=== PATIENT | female | born 1965 | race Caucasian/White ===

== ENCOUNTER 2019-11-11 09:06 | Inpatient (IN) | payer OTHER ==
[~2019-11-11] VITALS: Ht 162.6 cm; Wt 67.0 kg
[2019-11-11] VITALS (13 sets, daily range): BP systolic 110–133; BP diastolic 75–95
[2019-11-11] MEDS ORDERED: VALTREX 500 MG500 M1 PO (09:25)
[2019-11-11] MEDS ORDERED: ONDANSETRON ODT4 MG PO (09:25)
[2019-11-11] MEDS ORDERED: BUSPIRONE HCL10 MG PO (09:26)
[2019-11-11] MEDS ORDERED: PREDNISONE 5 MG5 M1 PO (09:27)
[2019-11-11 09:31] LABS: HEMATOCRIT 54.9 % (37.0-47.0); HEMOGLOBIN 19.4 gm/dL (12.0-15.0); MCH 39.7 pg (26.0-34.0); MCHC 35.2 g/dL (28.0-37.0); MCV 112.6 fL (80.0-100.0); MPV 9.6 fl. (7.2-11.1); NUCLEATED RBCS 0 /100WBC; PLATELET COUNT* 434 thou/uL (150-400); RBC 4.88 mil/uL (4.20-5.00); RDW-CV 17.4 % (10.5-14.5); WBC 21.7 thou/uL (4.0-11.0)
[2019-11-11 09:32] LABS: URINE BLOOD NEGATIVE (Negative); URINE CLARITY CLEAR; URINE COLOR YELLOW; URINE GLUCOSE-RANDOM NEGATIVE (Negative); URINE KETONES 2+ (Negative); URINE LEUKOCYTES-REFLEX TRACE (Negative); URINE NITRITE-REFLEX NEGATIVE (Negative); URINE PROTEIN 1+ (Negative); URINE SPECIFIC GRAVITY 1.025 (1.005-1.030)
[2019-11-11 09:34] LABS: URINE BILIRUBIN 2+ (Negative)
[2019-11-11 09:35] LABS: ICTOTEST (BILI CONFIRMATORY) Positive (Negative)
[2019-11-11 09:38] LABS: INR 1.1; PROTIME 11.6 Seconds (9.20-11.50)
[2019-11-11 09:40] LABS: BE -3.7 mmol/L (-2 to +3); PCO2 24.7 mmHg (35.0-45.0); PO2 105.1 mmHg (75.0-100.0); pH 7.473 (7.340-7.450)
[2019-11-11 09:44] LABS: SQUAMOUS 0-3 Few /LPF (0-3); URINE RBC 0-2 Rare /HPF (0-2); URINE WBC-REFLEX 6-15 Few /HPF (0-5)
[2019-11-11 09:45] LABS: AMORPHOUS URATES Few /LPF (None Seen); CASTS None Seen /LPF (None Seen); MUCUS 0-3 Light strn/LPF (None Seen)
[2019-11-11 09:55] LABS: AMP/METHAMP Negative (Negative); BARBITURATES Negative (Negative); BENZODIAZEPINES Negative (Negative); COCAINE Negative (Negative); METHADONE Negative (Negative); OPIATES Negative (Negative); PCP Negative (Negative); THC POSITIVE (Negative)
[2019-11-11 10:00] LABS: ABSOLUTE LYMPHOCYTES 2.4 thou/uL (0.8-5.3); ABSOLUTE MONOCYTES 1.5 thou/uL (0.0-1.2); ABSOLUTE NEUTROPHILS 17.8 thou/uL (1.6-8.1); ANISOCYTOSIS 1+; PLATELET ESTIMATE INCREASED; POIKILOCYTOSIS 1+
[2019-11-11 10:17] LABS: CALCIUM 9.1 mg/dL (8.5-10.1); CREATININE 1.5 mg/dL (0.6-1.3); POTASSIUM 3.1 mmol/L (3.5-5.1)
[2019-11-11 10:21] LABS: ALBUMIN 2.8 g/dL (3.4-5.0); MAGNESIUM 2.6 mg/dL (1.8-2.4); TOTAL BILIRUBIN 2.1 mg/dL (<0.1-1.0); TOTAL PROTEIN 7.4 g/dL (6.4-8.2)
--- NOTE | 2019-11-11 14:48 | EKG ---
[place] [address] ELECTROCARDIOGRAM REPORT Name: TYREL OH Room: [address] IN .R.#: [id number] Admission: 11/11/19 Attend Phys: Lobo Mcclure, Discharge: Date of : 63 Date of Service: 11/11/19 0913 Report #: [id number] THIS REPORT FOR: //name// [facility] ED Test Date: 2019-11-11 Test Time: 09:13:12 Pat Name: TYREL OH Department: Room: [facility] Gender: F Salon Stylist: MS : 1965 Requested By: Sylvia Gutierrez Order Number: [id number] MD: Joseph Snider Measurements Intervals [place] Rate: 134 P: 49 MT: 114 QRS: 38 QRSD: 76 T: 239 QT: 295 QTc: 441 Interpretive Statements Sinus tachycardia Abnormal R-wave progression, early transition Borderline repolarization abnormality Baseline wander in lead(s) V6 No previous ECG available for comparison Electronically Signed On 11-11-2019 14:46:10 CDT by Joseph Snider [email or web address] <ELECTRONICALLY SIGNED> By: Joseph Snider MD, [facility] 11/11/19 1446 2 Joseph Snider MD, [facility] /EPI
[2019-11-12] VITALS (11 sets, daily range): BP systolic 108–139; BP diastolic 67–114
[2019-11-12 07:26] LABS: ABSOLUTE LYMPHOCYTES 1.7 thou/uL (0.8-5.3); ABSOLUTE MONOCYTES 1.2 thou/uL (0.0-1.2); ABSOLUTE NEUTROPHILS 18.9 thou/uL (1.6-8.1); BASOPHILS 0.1 %; EOSINOPHILS 0.1 %; HEMATOCRIT 43.4 % (37.0-47.0); LYMPHOCYTES 7.8 %; MCH 39.7 pg (26.0-34.0); MCHC 34.5 g/dL (28.0-37.0); MONOCYTES 5.3 %; MPV 9.1 fl. (7.2-11.1); NUCLEATED RBCS 0 /100WBC; POLYS 86.7 %; RBC 3.78 mil/uL (4.20-5.00); RDW-CV 17.4 % (10.5-14.5); WBC 21.9 thou/uL (4.0-11.0)
[2019-11-12 07:27] LABS: PLATELET COUNT* 309 thou/uL (150-400)
[2019-11-12 07:33] LABS: CALCIUM 8.2 mg/dL (8.5-10.1); CREATININE 0.5 mg/dL (0.6-1.3)
[2019-11-12 07:34] LABS: POTASSIUM 2.7 mmol/L (3.5-5.1)
[2019-11-13 00:46] VITALS: BP 149/98
[2019-11-13 03:51] LABS: ABSOLUTE EOSINOPHILS 0.1 thou/uL (0.0-0.7); ABSOLUTE LYMPHOCYTES 2.3 thou/uL (0.8-5.3); ABSOLUTE MONOCYTES 1.1 thou/uL (0.0-1.2); ABSOLUTE NEUTROPHILS 10.6 thou/uL (1.6-8.1); BASOPHILS 0.1 %; EOSINOPHILS 0.5 %; HEMATOCRIT 39.7 % (37.0-47.0); HEMOGLOBIN 13.5 gm/dL (12.0-15.0); LYMPHOCYTES 16.3 %; MCH 39.3 pg (26.0-34.0); MCHC 33.9 g/dL (28.0-37.0); MCV 115.8 fL (80.0-100.0); MONOCYTES 7.5 %; NUCLEATED RBCS 0 /100WBC; POLYS 75.6 %; RBC 3.43 mil/uL (4.20-5.00); RDW-CV 16.8 % (10.5-14.5)
[2019-11-13 04:09] LABS: PLATELET COUNT* 222 thou/uL (150-400)
[2019-11-13 04:10] LABS: ALBUMIN 2.4 g/dL (3.4-5.0); CREATININE 0.4 mg/dL (0.6-1.3); POTASSIUM 3.6 mmol/L (3.5-5.1); TOTAL PROTEIN 5.2 g/dL (6.4-8.2)
[2019-11-13 04:30] VITALS: BP 144/89
[2019-11-13 08:00] VITALS: BP 153/101
[2019-11-13 11:31] VITALS: BP 95/71
[2019-11-13 14:59] LABS: CSF GLUCOSE 57 mg/dl (40-70); CSF PROTEIN 152.2 mg/dl (15-45)
[2019-11-13 15:21] LABS: CSF CLARITY CLEAR; CSF COLOR COLORLESS; CSF WBC 3 /mm3 (0-10); VOLUME 8 ml
[2019-11-13 15:22] LABS: CSF RBC 82 /mm3
[2019-11-13 16:11] VITALS: BP 131/87
[2019-11-13 20:00] VITALS: BP 139/83
[2019-11-14] VITALS (7 sets, daily range): BP systolic 113–146; BP diastolic 82–98
[2019-11-14 04:49] LABS: HEMATOCRIT 37.4 % (37.0-47.0); HEMOGLOBIN 12.9 gm/dL (12.0-15.0); MCH 39.4 pg (26.0-34.0); MCHC 34.6 g/dL (28.0-37.0); MCV 113.8 fL (80.0-100.0); MPV 9.9 fl. (7.2-11.1); NUCLEATED RBCS 0 /100WBC; PLATELET COUNT* 246 thou/uL (150-400); RBC 3.28 mil/uL (4.20-5.00); RDW-CV 17.2 % (10.5-14.5); WBC 12.9 thou/uL (4.0-11.0)
[2019-11-14 04:54] LABS: CALCIUM 8.1 mg/dL (8.5-10.1); CREATININE 0.4 mg/dL (0.6-1.3); POTASSIUM 3.1 mmol/L (3.5-5.1); TOTAL BILIRUBIN 1.2 mg/dL (<0.1-1.0); TOTAL PROTEIN 5.5 g/dL (6.4-8.2)
[2019-11-14 05:23] LABS: ABSOLUTE LYMPHOCYTES 2.2 thou/uL (0.8-5.3); ABSOLUTE MONOCYTES 0.8 thou/uL (0.0-1.2); ABSOLUTE NEUTROPHILS 9.9 thou/uL (1.6-8.1); ANISOCYTOSIS 1+; MACROCYTES 1+; PLATELET ESTIMATE ADEQUATE
[2019-11-14 08:05] LABS: ESR (SEDRATE) 40 mm/hr (0-30)
[2019-11-15] VITALS (7 sets, daily range): BP systolic 135–159; BP diastolic 82–110
[2019-11-15 02:09] LABS: HEPATITIS B SURFACE AG Negative (Negative)
[2019-11-15 05:13] LABS: HEMATOCRIT 41.1 % (37.0-47.0); HEMOGLOBIN 14.1 gm/dL (12.0-15.0); MCH 39.3 pg (26.0-34.0); MCHC 34.4 g/dL (28.0-37.0); MCV 114.2 fL (80.0-100.0); MPV 10.6 fl. (7.2-11.1); RBC 3.6 mil/uL (4.20-5.00); RDW-CV 17.1 % (10.5-14.5); WBC 8.5 thou/uL (4.0-11.0)
[2019-11-15 05:34] LABS: ALBUMIN 2.5 g/dL (3.4-5.0); CALCIUM 8.4 mg/dL (8.5-10.1); CREATININE 0.5 mg/dL (0.6-1.3); MAGNESIUM 1.5 mg/dL (1.8-2.4); POTASSIUM 3.8 mmol/L (3.5-5.1); TOTAL BILIRUBIN 1.2 mg/dL (<0.1-1.0); TOTAL PROTEIN 6.2 g/dL (6.4-8.2)
--- NOTE | 2019-11-15 06:16 | CON ---
[address] [address] CONSULTATION Name: TYREL OH Danial Room: [address] IN M.R.#: [id number] Admission: 11/11/19 Attend Phys: Lobo Mcclure MD Discharge: Date of : 63 Report #: [id number] THIS REPORT FOR: //name// cc: Abby Casiano NP, Elizabeth NP ~ THIS REPORT FOR: //name// CC: Lobo Casiano DATE OF SERVICE: 11/14/2019 INFECTIOUS DISEASE CONSULTATION ATTENDING PHYSICIAN: Lobo Mcclure MD REASON FOR EVALUATION: Abnormal spinal fluid analysis with marked elevation in protein, clinical picture of hallucinations and somnolence. HISTORY OF PRESENT ILLNESS: Chart reviewed, patient examined. Again, obtained from the chart. She presented to the emergency room per family. She had initial bilateral leg weakness and numbness, loss of taste, smell. Two weeks ago, she was tested for COVID-19, which was negative. Repeat due to lack of resolution at the doctor's office, was given medications including acyclovir as well as buspirone, Zofran. Since that time, her mental status has worsened, difficult to arouse. On day of admission, unable to walk. Initial evaluation showed a pO2 of 105 on 2 liters. Urinalysis showed 6-15 white cells, 10-30 bacteria. Drug screen showed marijuana. Initial CBC, white count was elevated 21.7, hemoglobin of 19.4 and 54.9, MCV of 112.6. Repeat CBC this morning, white count of 12.9, H and H 12.9 and 37.4, MCV elevated at 113.8. Prealbumin 11.6. Initial electrolytes; sodium 143, potassium 3.1, creatinine was 1.5. LFTs are elevated mildly, AST of 67, ALT of 95, total bilirubin of 2.1. CT of the pelvis, there is heterogeneous attenuation of liver with asymmetric fatty infiltration, distended gallbladder. No CT evidence of acute cholecystitis. Due to her lack of response, underwent lumbar puncture showed a clear and colorless white count was 3, red count was 82, glucose of 57, protein is 152.2. She was started on ceftriaxone 1 gram daily. ALLERGIES: None known. CURRENT MEDICATIONS: Thiamine, ceftriaxone, lorazepam, ondansetron. PAST MEDICAL HISTORY: Otherwise, history of anxiety. SOCIAL HISTORY: Nonsmoker, seemingly regular ethanol. No illicit drug use, although confirmed [place] [address] CONSULTATION Name: TYREL OH Danial Room: [address] IN [facility]#: [id number] Admission: 11/11/19 Attend Phys: Lobo Mcclure MD Discharge: Date of : 63 Report #: [id number] FAMILY HISTORY: Noncontributory. REVIEW OF SYSTEMS: Not obtainable. PHYSICAL EXAMINATION: GENERAL: She is quite encephalopathic. It is clear that she is not oriented questionably to person. Speech has been impaired. Appears somewhat chronically ill, undernourished. VITAL SIGNS: Temperature 96.8, pulse 92, respirations 19, blood pressure 114/82. HEENT: Normocephalic. NECK: Appears to be supple. I do not appreciate any meningismus. LUNGS: Diminished breath sounds. HEART: Regular. Borderline tachycardic. I do not appreciate any murmur. ABDOMEN: Soft. There is no apparent tenderness. There are no peritoneal signs. SKIN: I do not appreciate any rashes on skin exam. GENITOURINARY: Deferred. RECTAL: Deferred. LABORATORY DIAGNOSTIC DATA: From today, white count of 12.9, H and H 12.9 and 37.4, platelets of 246. Prealbumin 11.6. Electrolytes: Sodium 138, potassium 3.1, chloride 105, bicarbonate is 25, anion gap of 8, BUN and creatinine 5 and 0.4, glucose of 100. AST of 68, ALT of 84, albumin of 2.0, total protein 5.5. CSF analysis as noted above, protein elevated at 152.2, total white count of 3, rbc's of 82, markedly elevated ferritin at 1836. ASSESSMENT AND PLAN: Encephalopathy that is necessarily focal type of neurological dysfunction, certainly raises question. Really unable to give any kind of a history of travel, etc. She had some testing to the CSF including HSV 1, 2. empirically treat with acyclovir parenterally. She has some other issues that are quite explainable. She does have elevated liver function tests that could be a drug-induced hepatitis, so the possibility of adverse drug effects could explain a part of this. The elevated MCV in spite of the absence of anemia and markedly elevated ferritin suggest acute phase reactant. I will ask pathology to review the peripheral smear as well. I doubt this is a bacterial etiology. We will start doxycycline; however, the possibility of some unusual process. <ELECTRONICALLY SIGNED> By: Bentley Connell MD 11/15/19 0616 1208 [id number] Connell MD /nt
[2019-11-16] VITALS: BP 135/98
[2019-11-16 04:00] VITALS: BP 137/92
[2019-11-16 04:40] LABS: HEMATOCRIT 39.6 % (37.0-47.0); HEMOGLOBIN 13.9 gm/dL (12.0-15.0); MCH 39.3 pg (26.0-34.0); MCHC 35.2 g/dL (28.0-37.0); MCV 111.6 fL (80.0-100.0); MPV 9.5 fl. (7.2-11.1); RBC 3.55 mil/uL (4.20-5.00); RDW-CV 16.9 % (10.5-14.5)
[2019-11-16 05:00] LABS: WBC 26.9 thou/uL (4.0-11.0)
[2019-11-16 05:11] LABS: ALBUMIN 2.5 g/dL (3.4-5.0); CALCIUM 8.6 mg/dL (8.5-10.1); CREATININE 0.6 mg/dL (0.6-1.3); MAGNESIUM 1.5 mg/dL (1.8-2.4); POTASSIUM 3.3 mmol/L (3.5-5.1); TOTAL BILIRUBIN 0.9 mg/dL (<0.1-1.0)
[2019-11-16 08:00] VITALS: BP 129/100
[2019-11-16 11:22] VITALS: BP 118/87
[2019-11-16 14:08] LABS: HIV-1/HIV-2 ANTIBODY Non Reactive (Non Reactive)
[2019-11-16 16:30] VITALS: BP 140/96
[2019-11-16 19:50] VITALS: BP 135/78
[2019-11-17] VITALS: BP 120/89
[2019-11-17 04:00] VITALS: BP 127/91
[2019-11-17 07:22] LABS: HEMOGLOBIN 14.2 gm/dL (12.0-15.0); MCH 38.9 pg (26.0-34.0); MCHC 34.5 g/dL (28.0-37.0); MCV 112.6 fL (80.0-100.0); MPV 9.5 fl. (7.2-11.1); RBC 3.64 mil/uL (4.20-5.00); RDW-CV 17.7 % (10.5-14.5); WBC 26.7 thou/uL (4.0-11.0)
[2019-11-17 07:34] LABS: ALBUMIN 2.7 g/dL (3.4-5.0); CALCIUM 9.1 mg/dL (8.5-10.1); CREATININE 1.3 mg/dL (0.6-1.3); MAGNESIUM 2.1 mg/dL (1.8-2.4); POTASSIUM 3.8 mmol/L (3.5-5.1); TOTAL BILIRUBIN 0.8 mg/dL (<0.1-1.0); TOTAL PROTEIN 6.3 g/dL (6.4-8.2)
[2019-11-17 08:00] VITALS: BP 131/88
[2019-11-17 12:03] VITALS: BP 128/104
[2019-11-17 15:51] VITALS: BP 129/91
[2019-11-17 19:50] VITALS: BP 132/87
[2019-11-18 00:26] VITALS: BP 129/88
[2019-11-18 04:32] VITALS: BP 137/94
[2019-11-18 04:42] LABS: HEMATOCRIT 38.2 % (37.0-47.0); HEMOGLOBIN 13.1 gm/dL (12.0-15.0); MCHC 34.2 g/dL (28.0-37.0); MCV 114.1 fL (80.0-100.0); MPV 9.8 fl. (7.2-11.1); RBC 3.35 mil/uL (4.20-5.00); RDW-CV 17.3 % (10.5-14.5); WBC 19.1 thou/uL (4.0-11.0)
[2019-11-18 05:13] LABS: ALBUMIN 2.5 g/dL (3.4-5.0); CALCIUM 8.8 mg/dL (8.5-10.1); CREATININE 1.6 mg/dL (0.6-1.3); MAGNESIUM 1.9 mg/dL (1.8-2.4); POTASSIUM 3.4 mmol/L (3.5-5.1); TOTAL BILIRUBIN 0.9 mg/dL (<0.1-1.0); TOTAL PROTEIN 5.7 g/dL (6.4-8.2)
[2019-11-18 08:00] VITALS: BP 141/98
[2019-11-18 12:01] VITALS: BP 154/106
[2019-11-18 12:08] LABS: HSV 1 DNA Negative (Negative); HSV 2 DNA Negative (Negative)
[2019-11-18 12:22] LABS: URINE BILIRUBIN NEGATIVE (Negative); URINE BLOOD NEGATIVE (Negative); URINE CLARITY CLEAR; URINE COLOR YELLOW; URINE GLUCOSE-RANDOM NEGATIVE (Negative); URINE KETONES NEGATIVE (Negative); URINE LEUKOCYTES TRACE (Negative); URINE NITRITE NEGATIVE (Negative); URINE PROTEIN NEGATIVE (Negative); URINE SPECIFIC GRAVITY 1.015 (1.005-1.030); URINE UROBILINOGEN 0.2 E.U./dl (0.2-1.0)
[2019-11-18 12:29] LABS: BACTERIA 1-9 Few /HPF (None Seen); CASTS None Seen /LPF (None Seen); CRYSTALS None Seen /LPF (None Seen); MUCUS None Seen strn/LPF (None Seen); SQUAMOUS 0-3 Few /LPF (0-3); URINE RBC 0-2 Rare /HPF (0-2); URINE WBC 0-5 Rare /HPF (0-5)
[2019-11-18 14:11] LABS: GLOBULIN TOTAL 2.3 g/dL (2.2-3.9); M-SPIKE Not Observed g/dL (Not Observed)
[2019-11-18 15:39] VITALS: BP 166/109
[2019-11-18 19:55] VITALS: BP 142/91
[2019-11-19 00:22] VITALS: BP 129/81
[2019-11-19 04:27] VITALS: BP 109/57
[2019-11-19 05:25] LABS: MCH 39.4 pg (26.0-34.0); MCHC 34.2 g/dL (28.0-37.0); MCV 115.2 fL (80.0-100.0); MPV 9.5 fl. (7.2-11.1); RBC 3.04 mil/uL (4.20-5.00); RDW-CV 17.8 % (10.5-14.5); WBC 11.3 thou/uL (4.0-11.0)
[2019-11-19 05:43] LABS: ALBUMIN 2.2 g/dL (3.4-5.0); CALCIUM 8.4 mg/dL (8.5-10.1); CREATININE 1.4 mg/dL (0.6-1.3); POTASSIUM 4.1 mmol/L (3.5-5.1); TOTAL BILIRUBIN 0.7 mg/dL (<0.1-1.0); TOTAL PROTEIN 5.3 g/dL (6.4-8.2)
[2019-11-19 08:00] VITALS: BP 157/110
[2019-11-19 11:57] VITALS: BP 128/82
[2019-11-19 15:57] VITALS: BP 166/99
[2019-11-20] VITALS (15 sets, daily range): BP systolic 139–169; BP diastolic 92–115
[2019-11-20 04:30] LABS: HEMATOCRIT 36.3 % (37.0-47.0); HEMOGLOBIN 12.5 gm/dL (12.0-15.0); MCH 39.4 pg (26.0-34.0); MCHC 34.4 g/dL (28.0-37.0); MCV 114.6 fL (80.0-100.0); MPV 9.6 fl. (7.2-11.1); RBC 3.17 mil/uL (4.20-5.00); RDW-CV 17.3 % (10.5-14.5); WBC 13.5 thou/uL (4.0-11.0)
[2019-11-20 04:43] LABS: APTT 24.2 Seconds (25.0-31.3); INR 1.2; PROTIME 11.9 Seconds (9.20-11.50)
[2019-11-20 04:45] LABS: ALBUMIN 2.4 g/dL (3.4-5.0); CALCIUM 8.8 mg/dL (8.5-10.1); CREATININE 1.2 mg/dL (0.6-1.3); POTASSIUM 3.9 mmol/L (3.5-5.1); TOTAL PROTEIN 5.7 g/dL (6.4-8.2)
--- NOTE | 2019-11-20 11:19 | CON ---
[address] [address] CONSULTATION Name: ADRIANOTYREL P Room: [address] IN M.R.#: [id number] Admission: 11/11/19 Attend Phys: Lobo Mcclure MD Discharge: Date of : 63 Report #: [id number] THIS REPORT FOR: //name// cc: Abby Casiano NP, Elizabeth NP ~ THIS REPORT FOR: //name// CC: Lobo Casiano DATE OF SERVICE: 11/18/2019 REQUESTING PHYSICIAN: Dr. Schuster. REASON FOR CONSULTATION: Acute kidney injury. HISTORY OF PRESENT ILLNESS: The patient is a 54-year-old female who was admitted to the hospital on 11/11/2019 with a complaint of altered mental status. The patient apparently was doing fine, but then became altered and confused for several weeks prior to admission, is getting slowly worse. She was even tested for COVID-19 by the primary care physician because she could not smell or taste anything. She was negative. She was given a prednisone, valacyclovir, buspirone, Zofran, but unfortunately did not get any better and on the day of admission when she woke up, she could not walk. She was confused. On admission, her creatinine was 1.5, but it improved quickly to normal. Neurology and Infectious Disease services were consulted. She had a lumbar puncture done and diagnosis at this point is encephalopathy. Etiology is still unclear. The patient was started empirically on IV acyclovir and also on doxycycline. Her creatinine went from 0.6 on 11/16/2019 to 1.3 yesterday and 1.6 today. Her acyclovir was stopped. MEDICAL HISTORY: Unremarkable. SOCIAL HISTORY: No significant tobacco or alcohol abuse. MEDICATIONS: As I described earlier. REVIEW OF SYSTEMS: Unreliable due to her altered mental status. PHYSICAL EXAMINATION: GENERAL: She is awake, but does not engage in conversation. She is disoriented. VITAL SIGNS: Blood pressure 140/98, heart rate is 114, afebrile. HEENT: Pupils are round. Oral mucosa dry. NECK: [place] [address] CONSULTATION Name: TYREL OH Room: [address] IN [facility]#: [id number] Admission: 11/11/19 Attend Phys: Lobo Mcclure MD Discharge: Date of : 63 Report #: [id number] LUNGS: Clear. CARDIOVASCULAR: Regular rate. ABDOMEN: Soft. LOWER EXTREMITIES: No edema. LABORATORY DATA: Urinalysis from 11/11/2019 showed some presence of bacteria, 0-2 red blood cells, some squamous cells, 2+ bilirubin. Her serum sodium is 142, potassium 3.4, chloride 110, carbon dioxide 21, BUN 30, creatinine 1.6. ASSESSMENT: 1. Acute kidney injury, possible due to acyclovir induced damage. Acyclovir can form crystals that can precipitate and block the tubules. I cannot rule out acute interstitial nephritis as a reaction to some infection that she has. Again, I am still not sure what she has. 2. Altered mental status. Workup is in progress. We have described earlier. PLAN: 1. Agree with stopping acyclovir. 2. We will recheck her urine and see if we can detect crystals in the urine that would confirm diagnosis of acyclovir induced acute kidney injury. Also agree with giving her more fluid. Continue with NS at 150 mL per hour. Follow labs. Discussed with Dr. Schuster and with her nurse. <ELECTRONICALLY SIGNED> By: Saravanan Garber MD 11/20/19 1119 1129 2058Alexayesha Weinstein MD /PMT
--- NOTE | 2019-11-20 13:35 | CON ---
[address] [address] CONSULTATION Name: ADRIANOTYREL P Room: [address] IN M.R.#: [id number] Admission: 11/11/19 Attend Phys: Lobo Mcclure MD Discharge: Date of : 63 Report #: [id number] THIS REPORT FOR: //name// cc: Abby Casiano NP, Elizabeth NP ~ THIS REPORT FOR: //name// CC: Lobo Casiano NP DATE OF SERVICE: 11/19/2019 REFERRING PHYSICIAN: Lobo Mcclure MD REASON FOR CONSULTATION: Elevated LFTs. IMPRESSION: 1. Elevated LFTs, of uncertain etiology, mental status changes and neurologic changes, neurologic issues of uncertain significance. 2. Chronic alcohol abuse. 3. Macrocytic anemia secondary to chronic alcohol abuse as well. RECOMMENDATIONS: 1. I reviewed all the patient's records including her labs and CT scans of the abdomen and pelvis while she does have fatty liver, the pattern of her elevated liver function tests do not fit necessarily. The pattern of a patient with alcoholic liver disease. 2. For this reason, we will check some serologic studies to evaluate her elevated LFTs including ceruloplasmin level, total copper level and a 24-hour urine for copper as well as autoimmune studies and the like. 3. We will hold off on an ultrasound-guided liver biopsy at this time. 4. Continue with all supportive care including folic acid, thiamine, etc. We will wait for the results of these studies and make further recommendations thereafter. HISTORY OF PRESENT ILLNESS: The patient is a 54-year-old white female who has been in the hospital since 11/10 with a multitude of issues and is currently being evaluated for issues related to mental status changes and neurologic issues. We were asked to see her because of elevated liver function tests. Most of the history is obtained from the patient's chart, which indicates the patient has longstanding history of chronic alcohol abuse. It is unclear how much she drinks and no one has been able to quantify this. The patient is not able to answer questions reliably at this point in time. We were asked to see her because of elevated liver function tests. She has [place] [address] CONSULTATION Name: TYREL OH Room: [address] IN .R.#: [id number] Admission: 11/11/19 Attend Phys: Lobo Mcclure MD Discharge: Date of : 63 Report #: [id number] any problems related to her upper or lower GI tract, but then again we cannot get much of a history. She has not had any previous hospital stays here at [facility], so we do not have any records regarding the same. She presented to the ER at the request of the family because of mental status changes and that was having issues with weakness, could not smell or eat and was not doing well. She is currently in the hospital, being evaluated by multiple subspecialists. ALLERGIES: Not known. MEDICATIONS: Upon admission include ondansetron, Valtrex, BuSpar and prednisone. PAST MEDICAL HISTORY: Not known. PAST SURGICAL HISTORY: Not known. SOCIAL HISTORY: Not known. FAMILY HISTORY: Not known. PHYSICAL EXAMINATION: GENERAL: Revealed an ill-appearing 54-year-old white female who appears much older than her stated age. CARDIOPULMONARY: Revealed a regular rate and rhythm. LUNGS: Clear. ABDOMEN: Soft. I cannot really appreciate an obvious organomegaly or mass. LABORATORY DATA: From today revealed a white count of 11.3, hemoglobin 12.0, platelet count 222,000, MCV is 115.2 and RDW 17.8. On admission, her white count was 21.7, hemoglobin 19.4, platelet count 434,000 with an MCV of 112.6 and RDW of 17.4. Her current laboratory tests, chemistry tests revealed sodium 145, potassium 4.1, chloride 115, bicarbonate 23, BUN 35, creatinine 1.40 for GFR of only 39. Total bilirubin is 0.7, alkaline phosphatase 218, AST 72, ALT 129. Her albumin is only 2.2. Compared to admission, her bilirubin was 2.1, alkaline phosphatase 168, AST 67, ALT 95. Albumin 2.8. Her GFR at that time was 36. Ammonia level is 14. Acute hepatitis panel was negative. Her protime was 11.6 with INR 1.[address] scan was reviewed of the abdomen and pelvis, which revealed diffuse fatty infiltration of the liver with heterogeneous attenuation. Gallbladder is distended. There is no definitive sludge or stones. Spleen appeared normal. I did not see any problems within the GI tract of any concern. DISCUSSION: At the present time, the patient has elevated liver function tests. [address] [address] CONSULTATION Name: TYREL OH Room: [facility] IN M.R.#: [id number] Admission: 11/11/19 Attend Phys: Lobo Mcclure MD Discharge: Date of : 63 Report #: [id number] We will proceed with a number of serologic studies and make further recommendations thereafter. <ELECTRONICALLY SIGNED> By: Jake Guillermo DO 11/20/19 1335 1843 2315Jake Guillermo DO /nt
[2019-11-20 17:54] LABS: CSF GLUCOSE 66 mg/dl (40-70); CSF PROTEIN 187.2 mg/dl (15-45)
[2019-11-20 18:58] LABS: CSF CLARITY CLEAR; CSF COLOR COLORLESS; VOLUME 23 ml
[2019-11-20 18:59] LABS: CSF RBC 2 /mm3; CSF WBC 1 /mm3 (0-10)
[2019-11-20 21:07] LABS: IgA 171 mg/dL (87-352); IgG 651 mg/dL (586-1602); IgM 238 mg/dL (26-217)
[2019-11-21] VITALS (19 sets, daily range): BP systolic 143–195; BP diastolic 92–124
[2019-11-21 05:07] LABS: HEMATOCRIT 35.8 % (37.0-47.0); HEMOGLOBIN 12.3 gm/dL (12.0-15.0); MCH 39.4 pg (26.0-34.0); MCHC 34.5 g/dL (28.0-37.0); MCV 114.4 fL (80.0-100.0); MPV 9.4 fl. (7.2-11.1); RBC 3.13 mil/uL (4.20-5.00); RDW-CV 17.4 % (10.5-14.5)
[2019-11-21 05:35] LABS: ALBUMIN 2.3 g/dL (3.4-5.0); CALCIUM 9.1 mg/dL (8.5-10.1); MAGNESIUM 1.7 mg/dL (1.8-2.4); POTASSIUM 3.2 mmol/L (3.5-5.1); TOTAL BILIRUBIN 1.4 mg/dL (<0.1-1.0); TOTAL PROTEIN 5.4 g/dL (6.4-8.2)
[2019-11-21 06:08] LABS: CERULOPLASMIN 21.2 mg/dL (19.0-39.0)
[2019-11-21 10:38] LABS: BE -3.3 mmol/L (-2 to +3); PCO2 27.3 mmHg (35.0-45.0); PO2 80.7 mmHg (75.0-100.0)
--- NOTE | 2019-11-21 15:25 | 2DMMODE ---
[place] [address] 2 D/M-MODE ECHOCARDIOGRAM Name: ADRIANOTYREL P Room: [address] IN M.R.#: [id number] Admission: 11/11/19 Attend Phys: Lobo Mcclure, Discharge: Date of : 63 Date of Service: 11/21/19 1523 Report #: [id number] THIS REPORT FOR: cc: Abby Casiano NP, Elizabeth NP Holkins,Zack Asencio MD [facility] ~ APPROVED REPORT Study performed: 11/21/2019 14:18:50 EXAM: Comprehensive 2D, Doppler, and color-flow Echocardiogram Patient Location: In-Patient BSA: 1.72 HR: 55 bpm BP: 154/110 mmHg Other Information Study Quality: Fair Technically limited study due to inability to position patient. Indications AMS, Encephalopathy, Weakness 2D Dimensions IVSd: 10.21 (7-11mm) LVOT Diam: 16.28 (18-24mm) LVDd: 40.44 mm PWd: 9.46 (7-11mm) Ascending Ao: 26.42 (22-36mm) LVDs: 28.11 (25-40mm) Aortic Root: 24.71 mm Volumes Left Atrial Volume (Systole) LA ESV Index: 13.80 mL/m2 Aortic Valve AoV Peak Dilshad.: 1.00 m/s AO Peak Gr.: 4.02 mmHg LVOT Max P.60 mmHg AO Mean Gr.: 2.28 mmHg LVOT Mean P.62 mmHg LVOT Max V: 0.81 m/s AO V2 VTI: 19.39 cm LVOT Mean V: 0.61 m/s SANDI (VTI): 1.75 cm2 LVOT V1 VTI: 16.28 [place] [address] 2 D/M-MODE ECHOCARDIOGRAM Name: TYREL OH Room: [address] IN .R.#: [id number] Admission: 11/11/19 Attend Phys: Lobo Mcclure, Discharge: Date of : 63 Date of Service: 11/21/19 1523 Report #: [id number] Mitral Valve E/A Ratio: 0.64 MV Decel. Time: 165.10 ms MV E Max Dilshad.: 0.66 m/s MV PHT: 47.88 ms MVA (PHT): 4.59 cm2 TDI E/Lateral E': 11.00 E/Medial E': 9.43 Medial E' Dilshad.: 0.07 m/s Lateral E' Dilshad.: 0.06 m/s Pulmonary Valve PV Peak Dilshad.: 0.75 m/s PV Peak Gr.: 2.26 mmHg Tricuspid Valve RAP Estimate: 5.00 mmHg TR Peak Gr.: 21.72 mmHg RVSP: 26.72 mmHg PA Pressure: 26.72 mmHg Left Ventricle The left ventricle is normal size. There is normal LV segmental wall motion. There is normal left ventricular wall thickness. Left ventricular systolic function is normal. The left ventricular ejection fraction is within the normal range. LVEF is 55-60%. Grade I - abnormal relaxation pattern. Right Ventricle The right ventricle is normal size. The right ventricular systolic function is normal. Atria The left atrium size is normal. The right atrium size is normal. Aortic Valve The aortic valve is normal in structure. No aortic regurgitation is present. There is no aortic valvular stenosis. Mitral Valve The mitral valve is normal in structure. Trace mitral regurgitation. No evidence of mitral valve stenosis. Tricuspid Valve The tricuspid valve is normal in structure. [place] [address] 2 D/M-MODE ECHOCARDIOGRAM Name: TYREL OH Room: [address] IN [facility]#: [id number] Admission: 11/11/19 Attend Phys: Lobo Mcclure, Discharge: Date of : 63 Date of Service: 11/21/19 1523 Report #: [id number] Pulmonic Valve The pulmonary valve is normal in structure. There is no pulmonic valvular regurgitation. Great Vessels The aortic root is normal in size. IVC is not visualized. Pericardium There is no pericardial effusion. <Conclusion> The left ventricle is normal size. There is normal left ventricular wall thickness. Left ventricular systolic function is normal. The left ventricular ejection fraction is within the normal range. LVEF is 55-60%. Grade I - abnormal relaxation pattern. The right ventricle is normal size. The left atrium size is normal. The aortic valve is normal in structure. The mitral valve is normal in structure. The tricuspid valve is normal in structure. There is no pericardial effusion. There is normal LV segmental wall motion. <ELECTRONICALLY SIGNED> By: Zack Madrigal MD, FACC 11/21/19 1523 1523 1523 Zack Madrigal MD, FACC /INF
[2019-11-22 11:08] LABS: ANA INTERPRETATION Negative (Negative)
[2019-11-24 16:08] LABS: ANA INTERPRETATION Negative (())
--- NOTE | 2019-11-24 18:46 | CON ---
[address] [address] CONSULTATION Name: ADRIANOTYREL Danial Room: [address] IN M.R.#: [id number] Admission: 11/11/19 Attend Phys: Lobo Mcclure MD Discharge: 11/21/19 Date of : 63 Report #: [id number] THIS REPORT FOR: //name// cc: Abby Casiano NP, Elizabeth NP ~ THIS REPORT FOR: //name// CC: Lobo Casiano DATE OF SERVICE: 11/12/2019 HISTORY OF PRESENT ILLNESS: A 54-year-old female patient who is not able to provide any reliable history. I talked to the nurses looking after this patient. I called the patient's significant other, but was unable to reach them. Therefore, history is pretty incomplete. It looks like the patient having a deterioration in her mental status from the last few weeks. History indicates she drinks alcohol, but how much alcohol she drinks she does not tell me. Here, she is admitted with what looks like urinary tract infection and elevated white count. Her MCV is pretty high. She is completely confused and is unable to provide any reliable history. REVIEW OF SYSTEMS: Indicate some hallucination, loss of taste, COVID negative. She had some hallucination and thus all the history I can get, I attempted to do a 14-point review of system and that is all I could get. She is on prednisone. She cannot tell me why she is on prednisone. PAST MEDICAL HISTORY: Unavailable. FAMILY HISTORY: Unavailable. SOCIAL HISTORY: Records indicate that she does drink alcohol. It is not clear how much alcohol she drinks. PHYSICAL EXAMINATION: Indicates she is alert. She can follow some commands some time. Her cooperation is not good enough for any good neurological examination. She can tell me what month it is. She moved looks like all 4 extremities, but difficult to tell whether the strength is symmetrical. Sensation we are unable to check. She does not relax for doing rest of the examination including reflexes. Her blood pressure is 120/105, respiration is 17, pulse is 96, and she has been afebrile. Head CT has a lot of motion artifact. IMPRESSION: This patient needs further workup to determine the etiology of the patient's symptoms. I ordered an EEG and MRI. [place] [address] CONSULTATION Name: TYREL OH Room: [address] IN [facility]#: [id number] Admission: 11/11/19 Attend Phys: Lobo Mcclure MD Discharge: 11/21/19 Date of : 63 Report #: [id number] have a spinal tap if it is a recent onset. I will try to talk to the significant other and tried to get some more history and try to arrange that, if she is agreeable Thank you very much for this referral. A total of about 50 minutes of time was spent taking care of this patient today and majority was counseling and coordinating. <ELECTRONICALLY SIGNED> By: Mario Morton MD 11/24/19 1846 1405 1427Mario Morton MD /nt
--- NOTE | 2019-11-24 18:46 | EEG ---
[address] [address] EEG STUDY REPORT Name: TYREL OH Room: [address] IN M.R.#: [id number] Admission: 11/11/19 Attend Phys: Lobo Mcclure MD Discharge: 11/21/19 Date of : 63 Report #: [id number] THIS REPORT FOR: //name// CC: Lobo Casiano DATE OF SERVICE: 11/12/2019 This patient is being evaluated for altered mental status. The patient's background activity appears to be about 9 Hz and 20 microvolt. It is intermixed with theta range slowing on both sides. Photic stimulation was unremarkable. No active epileptiform activity was noticed during this record. IMPRESSION: This patient's EEG is intermixed with some theta range slowing on both sides. That is a nonspecific abnormality, which can occur with drowsiness, effect of psychotropic medication, dementia, etc. Clinical correlation is recommended. <ELECTRONICALLY SIGNED> By: Mario Morton MD 11/24/19 1846 1510 1523Ponel Morton MD /nt
== END 2019-11-21 17:08 | disposition short-term general hospital (02) | DRG 871 ==
LOC: M.ERS 09:06 → M.ICU 12:07 → M.2W 12:07 → M.TBA-ER 12:07 → M.ICU 12:47 → M.2W 11-12 16:15 → M.ICU 11-20 13:22
PROVIDERS: Family Medicine; Internal Medicine Gastroenterology; Internal Medicine Nephrology; Personal Emergency Response Attendant; Psychiatry & Neurology Neuromuscular Medicine; Specialist; ADMIT Internal Medicine
DX: A41.9 Sepsis, unspecified organism (principal); G92 Toxic encephalopathy; G82.50 Quadriplegia, unspecified; N17.9 Acute kidney failure, unspecified; B17.9 Acute viral hepatitis, unspecified; K92.2 Gastrointestinal hemorrhage, unspecified; E87.0 Hyperosmolality and hypernatremia; N39.0 Urinary tract infection, site not specified; R11.2 Nausea with vomiting, unspecified; E86.0 Dehydration; F41.9 Anxiety disorder, unspecified; R79.89 Other specified abnormal findings of blood chemistry; F10.10 Alcohol abuse, uncomplicated; D53.9 Nutritional anemia, unspecified; K82.9 Disease of gallbladder, unspecified; D72.829 Elevated white blood cell count, unspecified; D75.89 Other specified diseases of blood and blood-forming organs; K76.0 Fatty (change of) liver, not elsewhere classified; N14.1 Nephropathy induced by other drugs, medicaments and biological substances; T37.5X5A Adverse effect of antiviral drugs, initial encounter; T38.0X5A Adverse effect of glucocorticoids and synthetic analogues, initial encounter; Y92.89 Other specified places as the place of occurrence of the external cause; Z79.899 Other long term (current) drug therapy